=== PATIENT | male | born 1995 | race Hispanic/Latino ===

== ENCOUNTER → 2021-02-26 10:24 | Outpatient (CLI) | payer OTHER, SELFPAY ==
[2021-02-26 13:41] LABS: COVID19 -Nasal RAPID Negative (Negative)
== END ==
PROVIDERS: Visit Provider Physician Assistant
DX: Z01.812 Encounter for preprocedural laboratory examination (principal); Z20.822 Contact with and (suspected) exposure to COVID-19
CPT/HCPCS: 87635

== ENCOUNTER 2021-02-27 06:31 | Day surgery (SDC) | payer OTHER, SELFPAY ==
[2021-02-25 07:38] VITALS: BMI 32.5
[2021-02-27] VITALS (8 sets, daily range): BP systolic 129–144; BP diastolic 82–91; PULSE 74–91; RESP 12–16; TEMP 36.2–36.6; O2SAT 95–100; BMI 30.7
--- NOTE | 2021-02-27 07:26 | PM.PREOP ---
Pre-operative Note COVID-19 COVID-19 status: Negative Interval Note History & Physical reviewed/Exam performed by Physician: Yes Changes to H&P: No
--- NOTE | 2021-02-27 07:27 | PM.OP.1 ---
Operative Date/Time/Diagnoses Date of procedure: 02/27/21 Time of procedure: 09:20 Pre-op diagnosis: Septal deviation, nasal obstruction, inferior turbinate hypertrophy Post-op diagnosis: same Procedure & Clinicians Procedure: 1. Septoplasty 2. Inferior turbinate reduction via intramural cautery Same procedure as scheduled: Yes Indications: 25-year-old male with the above diagnoses incompletely managed with medical therapy presents for the above procedures. Following discussion of the material risks benefits complications and alternatives, the patient elected to proceed. Surgeon: Demar Hernandez Click Yes if Unassisted: Yes Anesthesia Type: General and Local Operative Notes Findings: 3+ left septal deviation, including thick posterior septal spur, LEFT posterior flap tear during dissection, RIGHT flap entirely intact. 3+ right inferior turbinate hypertrophy. Some bleeding on emergence from anesthesia, resolved before extubation, Afrin utilized. Closure Type: primary Specimen(s): none sent Estimated Blood Loss (mL): 150 Blood products transfused: none Procedure in detail: Following identification and confirmation of consent as well as preoperative Afrin nasal spray, the patient was brought to the operating room suite and placed in the supine position. General endotracheal anesthesia was administered. I infiltrated the septum widely bilaterally with 1% lidocaine 1 100,000 epinephrine followed by temporary packing with cotton with Afrin and 4% lidocaine. Following sterile prep and drape, the packing was removed and I performed a right karmen-transfixion incision, elevated the right mucoperichondrial and mucoperiosteal flap. I disarticulated near the bony/cartilaginous junction and elevated the left mucoperiosteal flap. Deviated portions of the perpendicular plate of the ethmoid and vomer were resected. A large thick LEFT posterior bony spur was resected, but a large but posterior LEFT flap tear occured. The residual quadrilateral cartilage was further straightened by trimming it inferiorly as well as reducing the maxillary crest. A 2 mm strip of cartilage paralleling the residual 1 cm dorsal and caudal strut was resected to further straighten the quadrilateral cartilage. The hemitransfixion incision was closed with interrupted 5 0 chromic followed by a running 4 0 plain gut mattress suture to reapproximate the septal flaps. At case completion, 20/1000th of an inch silastic splints were placed bilaterally, sutured anteriorly with a single 4 0 nylon. The head of each inferior turbinate had been previously infiltrated with additional local anesthetic and a 25 gauge spinal needle was used to impale the length of the turbinate, with cautery on a setting of 15 activated on slow withdrawal. The turbinates were then outfractured. The procedure completed, sponge and needle counts were correct and the patient was extubated in the operating room and taken to recovery room in stable condition without known complication. On emergence there was some bleeding from the nose, controlled with further anesthetic and Afrin. He was extubated once no longer significantly bleeding. Postoperative care: Nasal saline every hour while awake, Vaseline or Polysporin to the nostrils at all times, begin irrigations t.i.d. beginning pod 1. Humidifier at the bedside blowing on the face. Tylenol alternating with Advil for pain control, oxycodone if necessary for breakthrough pain. Complications: none Post-operative Condition: stable Disposition: same day surgery Plan for aftercare: Nasal saline every hour while awake, ice to the upper lip, begin irrigations if desired t.i.d. tomorrow, Tylenol alternating with Advil for pain control, Vaseline to the nostrils at all times, oxycodone for breakthrough pain. Follow-up in 1 week for splint removal. Afrin for any significant bleeding. Keep head elevated.
[2021-02-27] MEDS: OXYMETAZOLINE NASAL SPRAY 15 ML 2 SPRAYS NASAL ×2 (07:30→08:04)
[2021-02-27] MEDS: ACETAMINOPHEN 325 MG TABLET 975 MG PO (07:30)
[2021-02-27] MEDS: SCOPOLAMINE 1 PATCH TOP (07:31)
[2021-02-27] MEDS: LACTATED RINGERS 1,000 ML 42 ML IV (07:31)
[2021-02-27] MEDS: LIDOCAINE 1% W/EPI 20 ML INJ (08:00)
--- NOTE | 2021-02-27 08:00 | SUR.OPER ---
Supine on padded OR bed, head on pillow, arm padded and tucked at side, legs uncrossed, safety belt at thigh, tape over blanket over lower legs .
[2021-02-27] MEDS: LIDOCAINE 4% SOLN 50 ML 20 ML TOP (08:06)
[2021-02-27] MEDS: HYDROMORPHONE 2 MG INJ IV (09:41)
[2021-02-27] MEDS: OXYCODONE IR 5 MG TABLET PO (09:42)
== END 2021-02-27 10:21 | disposition home or self-care (01) ==
PROVIDERS: Referring Provider Otolaryngology; Visit Provider Otolaryngology
PROC: (CPT 30520; principal; 2021-02-27 07:45)
DX: J34.2 Deviated nasal septum (principal); J34.89 Other specified disorders of nose and nasal sinuses; J34.3 Hypertrophy of nasal turbinates; J32.4 Chronic pansinusitis
CPT/HCPCS: 30520; 30802; A9270; J0330; J1100; J1170; J2405; J2704; J3010